=== PATIENT | female | born 1990 | race African-American/Black ===

== ENCOUNTER 2025-11-14 11:32 | Emergency (ER) | payer MEDICAID ==
[~2025-11-14] VITALS: Ht 170.2 cm; Wt 87.0 kg
[2025-11-14 12:06] VITALS: O2SAT 99
[2025-11-14 12:28] LABS: BASOPHILS % 0.3 % (0.0-2.0); EOSINOPHILS % 0.6 % (0.0-5.0); HEMATOCRIT. 34.4 % (36.0-48.0); HEMOGLOBIN. 11.3 g/dL (12.0-16.0); LYMPHOCYTES % 30.6 % (20.0-50.0); MEAN PLATELET VOLUME 7.3 fl (7.4-10.4); MONOCYTES % 9.3 % (2.0-8.0); NEUTROPHILS % 59.2 % (40.0-76.0); PLATELET 364 x1000/uL (130-400); RED BLOOD CELL COUNT 4.07 mill/uL (4.2-5.4); RED CELL DISTRIBUTION WIDTH 13.2 % (11.6-14.6)
[2025-11-14 12:47] LABS: CREATININE 0.8 mg/dL (0.6-1.0); UREA NITROGEN BLOOD 8 mg/dL (9-23)
[2025-11-14 12:55] LABS: CLARITY URINE CLEAR (CLEAR); COLOR URINE YELLOW (YELLOW); GLUCOSE URINE NEGATIVE (NEGATIVE); KETONES URINE NEGATIVE (NEGATIVE); LEUKOCYTE ESTERASE URINE NEGATIVE (NEGATIVE); NITRITE URINE NEGATIVE (NEGATIVE); OCCULT BLOOD URINE NEGATIVE (NEGATIVE); PH URINE 6.0 (4.5-8.0); PROTEIN URINE NEGATIVE (NEGATIVE); SPECIFIC GRAVITY URINE 1.026 (1.005-1.030); UROBILINOGEN URINE 0.2 E.U./dL (0.2-1.0)
[2025-11-14] MEDS: FAMOTIDINE 20MG TABLET PO ONE (14:18)
[2025-11-14] MEDS: ONDANSETRON 4MG ODT PO ONE (14:18)
[2025-11-14 14:59] LABS: ETHANOL BLOOD < 10 mg/dL (<10); PROTEIN TOTAL 7.7 g/dL (6.0-8.3)
[2025-11-14 15:01] LABS: ASPARTATE AMINOTRANSFERASE 18 IU/L (<34); BILIRUBIN DIRECT < 0.1 mg/dL (<=3.0); BILIRUBIN TOTAL 0.3 mg/dL (0.1-1.0)
[2025-11-14 15:03] LABS: HCG SCREEN NEGATIVE
[2025-11-14] MEDS ORDERED: CELE-116 MT (16:20)
[2025-11-14] MEDS: CELECOXIB 200MG CAPSULE PO ONE (16:27)
[2025-11-14] MEDS: TRAMADOL 50MG TABLET PO ONE (16:27)
[2025-11-14 16:28] VITALS: BP 117/61; PULSE 85; RESP 17; TEMP 36.9; O2SAT 100
[2025-11-15 14:55] LABS: *AMPHETAMINES SCREEN URINE NEGATIVE (NEGATIVE)
[2025-11-15 14:56] LABS: *BARBITURATES SCREEN URINE NEGATIVE (NEGATIVE); *BENZODIAZEPINES SCREEN URINE NEGATIVE (NEGATIVE); *COCAINE SCREEN URINE NEGATIVE (NEGATIVE); CANNABINOID URINE SCREEN NEGATIVE (NEGATIVE); ECSTASY MDMA SCREEN URINE NEGATIVE (NEGATIVE); METHADONE URINE SCREEN NEGATIVE (NEGATIVE); OPIATES URINE SCREEN NEGATIVE (NEGATIVE); PHENCYCLIDINE URINE SCREEN NEGATIVE (NEGATIVE)
== END 2025-11-14 16:46 | disposition home or self-care (01) ==
LOC: ER 11:32
DX: R10.21 Pelvic and perineal pain right side (principal); R10.31 Right lower quadrant pain; Z88.6 Allergy status to analgesic agent; Z86.018 Personal history of other benign neoplasm; Z79.899 Other long term (current) drug therapy
CPT/HCPCS: 80076; 80305; 80048; 81003; 81025; 80320; 84703; 83690; 85025; 87086; 36415; 74176; 99284; Q0162; G0480